=== PATIENT | female | born 2000 | race Caucasian/White ===

== ENCOUNTER 2021-10-30 10:53 | Emergency (ER) | payer OTHER, SELFPAY ==
--- NOTE | ~2021-10-30 | XR_ITS ---
EXAMINATION: XR CHEST CLINICAL INFORMATION: Shortness of breath. COMPARISON: Chest radiographs 11/12/2018, 11/08/2018 TECHNIQUE: 2 views of the chest were obtained. FINDINGS: The lungs appear clear with no airspace consolidation or groundglass opacity or effusion. The heart is normal in size. The vascularity is normal. The costophrenic sulci are well-defined. The hilar and mediastinal contours are normal. No visible acute bony abnormality. XR/XR chest 2V IMPRESSION: Unremarkable examination.
[2021-10-30 12:22] VITALS: BP 126/72; PULSE 102; RESP 18; TEMP 37; O2SAT 99; BMI 58.1
[2021-10-30 16:03] LABS: Appearance Urine CLEAR; Color Urine YELLOW; Glucose Urine UA NEG (NEG); Leukocyte Esterase Urine NEG (NEG); Nitrite Urine NEG (NEG); Specific Gravity - Urine >= 1.030 (1.005-1.025); Urine Blood 3+ (NEG); Urine Ketones >=80 MG/DL (NEG); Urine Protein 1+ MG/DL (NEG-TRACE)
[2021-10-30 16:08] LABS: UPreg QC Valid YES; Urine Pregnancy POSITIVE (NEGATIVE)
[2021-10-30 16:12] LABS: Bacteria Urine TRACE /LPF; Mucus Urine 1+ /LPF; Squamous Epithelial Cell Urine TRACE /LPF; WBC Urine 0-2 /HPF (0-4)
--- NOTE | 2021-10-30 16:12 | ED_ITS ---
HPI - Asthma General Chief Complaint: Asthma Stated Complaint: asthma Time Seen by Provider: 10/30/21 16:12 Source: patient Mode of arrival: ambulatory Limitations: no limitations History of Present Illness HPI Narrative: 21-year-old female who presents emergency department for evaluation shortness of breath nausea, vomiting and chest pain. The patient states she has a history of asthma. She states she has had an asthma attack the past 3 days. She states that she has chest pain located in the anterior and posterior part of her chest, she describes the pain as a sharp pain which is worse with breathing and with coughing, the pain is 10/10 at its worst. The pain is intermittent. She states she feels short of breath and has dyspnea on exertion. She states that these symptoms are similar to her asthma ex acerbations in the past. She has been using her inhaler with only minimal relief for symptoms. She denied fever, chills, cough. She has had nausea and headache. The patient states that she is and her last menstrual period was September 15 2021 which makes her approximately 6 weeks by dates. She is a . She denies any abdominal pain she has not noticed any pain or swelling in her lower extremities. She denies any vaginal discharge or vaginal bleeding. Patient initially went to [facility] however due to long wait she left and came to our emergency department. She states she had a COVID test there and she was told that she was COVID negative. Related Data Previous Rx's Medication Instructions Recorded albuterol sulfate 90 mcg/actuation 2 puff INHALATION Q4-6H PRN #8.5 g 10/30/21 aerosol inhaler (ProAir HFA) metoclopramide HCl 10 mg tablet 10 mg PO Q6H PRN #14 tab 10/30/21 (Reglan) prednisone 20 mg tablet 60 mg PO DAILY 5 Days #15 tab 10/30/21 Allergies Allergy/AdvReac Type Severity Reaction Status Date / Time shrimp [SHRIMP] Allergy Unknown SWELLING Unverified 07/13/20 17:00 pt states no medication Allergy Unknown Uncoded 02/19/17 00:00 allerg SHRIMP Allergy Unknown Uncoded 02/19/17 00:00 Review of Systems Review of Systems: Yes all other systems are reviewed and are negative REPLACED BY [facility] Past Medical History REPLACED BY [facility] Narrative: Past medical history: Asthma. Past surgical history: Cholecystectomy. Social history: She denies tobacco, alcohol use. She states she occasionally smokes marijuana. Medical History (Updated 10/30/21 @ 16:54 by Harvinder Nunes MD) Asthma Social History Social History Advance Directives: No Advance Directives Information Provided: Yes Patient : Yes Physical Exam Vital Signs: Vital Signs: Last Vital Signs Temp 98.6 F 10/30/21 12:22 Pulse 102 H 10/30/21 12:22 Resp 18 10/30/21 12:22 BP 126/72 10/30/21 12:22 Pulse Ox 99 10/30/21 12:22 BMI result Body Mass Index 58.1 Const: Other: Very pleasant and cooperative female patient, she is awake alert, she does not appear to be in distress, she does have nausea and had several episodes of dry heaving while I was in the room with her, she answers all questions appropriately. Orientation/consciousness: oriented to person and oriented to place HENMT: Head: Yes normal to inspection, Yes normocephalic and Yes atraumatic Ears: external ears normal General nose exam: Normal external nose present Face and sinus: Yes normal facial exam Mouth: Normal oral and palatal mucosa present Throat: Yes posterior oropharynx normal Eyes: General: appearance normal, both eyes and all related structures Pupils: Equal, round and reactive pupils present Neck: Neck: Yes normal visual inspection, Yes no lymphadenopathy, Yes trachea midline and Yes supple Chest: Chest palpation & inspection: normal inspection of the chest and normal palpation of entire chest wall Resp: Effort & Inspection: normal respiratory effort and able to speak in complete sentences Auscultation: clear to auscultation bilaterally, no crackles, no rales, no rhonchi and no wheezes Cardio: Rate: regular rate Rhythm: regular rhythm Heart sounds: S1 normal heart sound present, S2 normal heart sound present and no murmurs GI: Inspection: Yes normal to inspection Palpation (GI): Soft to palpation, nontender and no guarding Auscultation: normal bowel sounds : General: Yes no CVA tenderness Back/Spine/Pelvis: Back: no CVA tenderness Skin: General skin exam: no rashes or lesions noted Neuro: General: oriented to person and oriented to place Cranial nerves: Yes CN's II-XII intact bilaterally and Yes Equal, round and reactive pupils present Cognition (Neuro): normal cognition Motor exam (neuro): 02/28 motor strength present throughout Extrem: General: Yes normal to inspection Psych: Appearance: grossly normal Speech and movement: Normal speech and movement present Affect: normal affect Attitude: cooperative Thought process: Normal thought process present Thought content: Normal thought content present Course Course Course Narrative: 21-year-old female with history of asthma, she is a G1, P0, LMP 09/15/2021, approximately 6 weeks by dates who presents emergency department for 3 days of shortness of breath, chest pain which she believes is consistent with her asthma exacerbation. She has also had nausea and vomiting with no lower abdominal pain. Patient's vital signs revealed a tachycardic p ulse of 102 otherwise were unremarkable with an O2 saturation of 99% on room , temperature of 98.6? , respiratory rate of 18 and a blood pressure of 126/72. The patient's physical examination did not reveal any wheezing at this time but she states she took a nebulizer treatment prior to coming to the emergency department. The patient has no abdominal tenderness. Urinalysis revealed 3+ blood and 1+ protein. Microscopic revealed 9 RBCs. test was positive. Chest x-ray revealed no evidence of pneumonia. The patient's presentation is consistent with an asthma exacerbation. She was started on prednisone 60 mg once a day for 5 days, given her 1st dose in the emergency department. She was also started on Reglan 10 mg every 6-8 hours as needed for nausea and vomiting associated with her . She was also given a prescription for a another albuterol inhaler since she states she is running out of this medication. She was given printed and verbal instructions and dischar ged home. MDM - Asthma Lab Data Labs: Lab Results 10/30/21 10/30/21 Range/Units 15:45 15:45 Urine Color YELLOW Urine Appearance CLEAR Urine pH 6.0 (5.0-8.0) Ur Specific [place] >= 1.030 H (1.005-1.025) Urine Protein 1+ H (NEG-TRACE) MG/DL Urine Glucose (UA) NEG (NEG) MG/DL Urine Ketones >=80 (NEG) MG/DL Urine Blood 3+ H (NEG) Urine Nitrite NEG (NEG) Ur Leukocyte Esterase NEG (NEG) Urine RBC 5-9 H (0) /HPF Urine WBC 0-2 (0-4) /HPF Ur Squamous Epith Cells TRACE /LPF Urine Bacteria TRACE /LPF Urine Mucus 1+ /LPF Urine Test POSITIVE H (NEGATIVE) Discharge Plan Discharge Clinical Impression: Asthma with acute exacerbation, Vomiting of Patient Disposition: Home, Self-Care Instructions: Nausea and Vomiting in (ED), Asthma (ED) Additional Instructions: Your chest x-ray was unremarkable. Your urinalysis was unremarkable. Your chest x-ray revealed no evidence of pneumonia. Your reported a negative COVID-19 test done at [facility]. Sometimes within the 1st 1-4 days of a COVID-19 infection you can have a false negative test. I recommend that if you are still feeling ill in 3 days then you should consider getting a repeat COVID-19 test to make sure that you are still negative. Take prednisone 20 mg pills, 3 pills once a day for 5 days. Take Reglan (metoclopramide) 10 mg pills, 1 pill every 6-8 hours as needed for nausea and vomiting. Follow-up with your doctor in 2 days. Please return to the emergency department if your symptoms get worse or if you develop any symptoms that are concerning to you. Prescriptions: New prednisone 20 mg tablet 60 mg PO DAILY 5 Days Qty: 15 RF: 0 metoclopramide HCl [Reglan] 10 mg tablet 10 mg PO Q6H PRN (Reason: nausea and vomiting) Qty: 14 RF: 0 albuterol sulfate [ProAir HFA] 90 mcg/actuation HFA aerosol inhaler 2 puff inhalation Q4-6H PRN (Reason: shortness of breath or wheezing) Qty: 8.5 RF: 0
[2021-10-30] MEDS: Metoclopramide HCl 10 MG TABLET PO (16:55)
[2021-10-30] MEDS: predniSONE 20 MG TABLET 60 MG PO (16:55)
[2021-10-30 17:05] VITALS: BP 117/79; PULSE 89; RESP 18; O2SAT 100
== END 2021-10-30 17:06 | disposition home or self-care (01) ==
PROVIDERS: Emergency Provider Emergency Medicine Emergency Medical Services
DX: O99.511 Diseases of the respiratory system complicating pregnancy, first trimester (principal); J45.901 Unspecified asthma with (acute) exacerbation; O21.9 Vomiting of pregnancy, unspecified; Z3A.01 Less than 8 weeks gestation of pregnancy
CPT/HCPCS: 71046; 81001; 81025; 99283